=== PATIENT | female | born 1965 | race American Indian/Alaskan Native ===

== ENCOUNTER 2019-06-21 22:12 | Emergency (ER) | payer MEDICARE ==
[2019-06-21 23:15] LABS: Bacteria,Urine 1+ /HPF (Negative); Bilirubin,Urine NEG (Negative); Blood,Urine NEG (Negative); Color,Urine Yellow (Yellow); Mucus,Urine FEW /HPF; Urobilinogen,Urine < 2.0 mg/dL (<2.0)
[2019-06-21 23:21] LABS: Amphetamine Screen,Urine PRESUMPTIVE NEGATIVE; Benzodiazepines Screen,Urine PRESUMPTIVE NEGATIVE; Cannabinoid Screen,Urine PRESUMPTIVE NEGATIVE; Cocaine Screen,Urine PRESUMPTIVE NEGATIVE; Methadone Screen,Urine PRESUMPTIVE NEGATIVE; Opiate Screen,Urine PRESUMPTIVE NEGATIVE
[2019-06-21 23:35] LABS: Hematocrit 46.6 % (30.3-42.9); Hemoglobin 14.9 gm/dl (10.1-14.3); Mean Corpuscular HGB Conc 32 % (30-34); Mean Corpuscular Volume 83 fl (79-97); Platelet Count 210 K/mm3 (140-440); Red Blood Count 5.65 M/mm3 (3.65-5.03); Red Cell Distribution Width 14.1 % (13.2-15.2)
[2019-06-21 23:55] LABS: BUN/Creatinine Ratio 14; Blood Urea Nitrogen 13 mg/dL (7-17); Calcium 9.6 mg/dL (8.4-10.2); Hemolysis Index 10
[2019-06-22] MEDS ORDERED: TYLENOL PO ONE (02:30)
--- NOTE | 2019-06-22 02:41 | Emergency Department Report ---
ED Medical Clearance HPI - General Chief complaint: Medical Clearance Stated complaint: MEDICAL CLEARANCE Time Seen by Provider: 06/22/19 02:07 Source: patient Mode of arrival: Ambulatory - History of Present Illness Initial comments: Patient is a 54-year-old female presents emergency room for medical clearance. She states that she needs medical clearance to go to [facility] for depression. She states that she had elevated blood pressure at [facility] after they took her vitals one time. She denies any SI, HI, or hallucinations. She states that she has chronic abdominal discomfort due to hernia which she has had repaired. Denies any nausea, vomiting, diarrhea, fever, chills, any other symptoms. She states that she had a normal bowel movement today while in the emergency department. States she has a past medical history of diabetes, hypertension, depression and anxiety. States that she takes metoprolol and amlodipine for her blood pressure. States that she did not take her nighttime dose of metoprolol today. Home medications: Home Medications Medication Instructions Recorded Confirmed Last Taken Renal Soft Gel 1 cap PO DAILY 05/11/13 06/28/15 06/27/15 15:00 Insulin Glargine,Hum.rec.anlog 10 units SQ QHS 06/21/15 06/28/15 06/27/15 20:00 [Lantus Solostar] Insulin Regular, Human [HumuLIN R] 0 unit SQ TID PRN 06/21/15 06/28/15 06/27/15 15:00 Megestrol [Megace] 20 mg PO TID 06/21/15 06/28/15 06/27/15 15:00 Sodium Bicarbonate 650 mg PO TID 06/21/15 06/28/15 06/27/15 21:00 predniSONE [Deltasone] 10 mg PO QDAY 06/21/15 06/28/15 06/28/15 06:00 ALBUTEROL Inhaler (OR & NICU) 2 puff IH QID PRN 06/27/15 06/28/15 06/28/15 06:00 [ProAir HFA Inhaler] Metoprolol [Lopressor TAB] 25 mg PO QDAY 06/27/15 06/28/15 06/27/15 22:00 Aspirin [Adult Low Dose Aspirin EC] 81 mg PO DAILY 06/28/15 07/01/15 06/27/15 15:00 Previous Rx's Medication Instructions Recorded Last Taken Type Ondansetron [Zofran TAB] 4 mg PO Q8HR PRN #30 tablet 08/26/14 06/27/15 21:00 Rx Calcium Acetate [Phoslo] 667 mg PO TID #30 capsule 06/01/15 06/27/15 21:00 Rx Midodrine [Proamatine] 5 mg PO BID #60 tablet 06/01/15 06/27/15 21:00 Rx Sertraline [Zoloft] 100 mg PO QDAY #30 tablet 06/01/15 06/27/15 21:00 Rx Promethazine [Phenergan TAB] 25 mg PO Q6HR PRN #10 tab 06/28/15 Unknown Rx oxyCODONE /ACETAMINOPHEN [Percocet 1 - 2 tab PO Q6HR PRN #40 tablet 06/28/15 Unknown Rx 5/325] Bisacodyl [Dulcolax suppos] 10 mg SC QDAY PRN #30 supp.rect 07/01/15 Unknown Rx LORazepam [Ativan] 0.5 mg PO QDAY PRN #30 tablet 07/01/15 Unknown Rx Pregabalin 25 mg PO QDAY #30 capsule 07/01/15 Unknown Rx Allergies/Adverse reactions: Allergies Allergy/AdvReac Type Severity Reaction Status Date / Time Penicillins Allergy Swelling Verified 05/25/15 12:19 ED Review of Systems ROS: Stated complaint: MEDICAL CLEARANCE Other details as noted in HPI Comment: All other systems reviewed and negative ED Past Medical Hx - Past Medical History Previous Medical History?: Yes Hx Hypertension: Yes Hx Heart Attack/AMI: No Hx Congestive Heart Failure: Yes Hx Diabetes: Yes Hx Deep Vein Thrombosis: Yes Hx GERD: Yes Hx Renal Disease: No (did dialysis prior to kidney transplant HD: M-W-F) Hx Arthritis: Yes Hx Headaches / Migraines: Yes (MIGRAINES) Hx Seizures: Yes Hx Psychiatric Treatment: Yes (1 tx at 15 yo, place unknown) Hx Asthma: No Hx COPD: Yes (rare inhaler use) Hx HIV: No Additional medical history: hernia, anemia, Falls - Surgical History Past Surgical History?: Yes Hx Cholecystectomy: Yes ([facility] 07-18-10) Additional Surgical History: hernia repair x2 , sigmoidoscopy, kidney transplant, bilat hip replacements - Social History Smoking Status: Never Smoker - Medications Home Medications: Home Medications Medication Instructions Recorded Confirmed Last Taken Type Renal Soft Gel 1 cap PO DAILY 05/11/13 06/28/15 06/27/15 15:00 History Ondansetron [Zofran TAB] 4 mg PO Q8HR PRN #30 tablet 08/26/14 06/28/15 06/27/15 21:00 Rx Calcium Acetate [Phoslo] 667 mg PO TID #30 capsule 06/01/15 06/28/15 06/27/15 21:00 Rx Midodrine [Proamatine] 5 mg PO BID #60 tablet 06/01/15 06/28/15 06/27/15 21:00 Rx Sertraline [Zoloft] 100 mg PO QDAY #30 tablet 06/01/15 06/28/15 06/27/15 21:00 Rx Insulin Glargine,Hum.rec.anlog 10 units SQ QHS 06/21/15 06/28/15 06/27/15 20:00 History [Lantus Solostar] Insulin Regular, Human [HumuLIN R] 0 unit SQ TID PRN 06/21/15 06/28/15 06/27/15 15:00 History Megestrol [Megace] 20 mg PO TID 06/21/15 06/28/15 06/27/15 15:00 History Sodium Bicarbonate 650 mg PO TID 06/21/15 06/28/15 06/27/15 21:00 History predniSONE [Deltasone] 10 mg PO QDAY 06/21/15 06/28/15 06/28/15 06:00 History ALBUTEROL Inhaler (OR & NICU) 2 puff IH QID PRN 06/27/15 06/28/15 06/28/15 06:00 History [ProAir HFA Inhaler] Metoprolol [Lopressor TAB] 25 mg PO QDAY 06/27/15 06/28/15 06/27/15 22:00 History Aspirin [Adult Low Dose Aspirin EC] 81 mg PO DAILY 06/28/15 07/01/15 06/27/15 15:00 History Promethazine [Phenergan TAB] 25 mg PO Q6HR PRN #10 tab 06/28/15 Unknown Rx oxyCODONE /ACETAMINOPHEN [Percocet 1 - 2 tab PO Q6HR PRN #40 tablet 06/28/15 Unknown Rx 5/325] Bisacodyl [Dulcolax suppos] 10 mg SC QDAY PRN #30 supp.rect 07/01/15 Unknown Rx LORazepam [Ativan] 0.5 mg PO QDAY PRN #30 tablet 07/01/15 Unknown Rx Pregabalin 25 mg PO QDAY #30 capsule 07/01/15 Unknown Rx ED Physical Exam - General Limitations: No Limitations General appearance: alert, in no apparent distress - Head Head exam: Present: atraumatic, normocephalic - Eye Eye exam: Present: normal appearance, PERRL, EOMI - ENT ENT exam: Present: mucous membranes moist - Respiratory Respiratory exam: Present: normal lung sounds bilaterally. Absent: respiratory distress, wheezes, rales, rhonchi, stridor, chest wall tenderness, accessory muscle use, decreased breath sounds, prolonged expiratory - Cardiovascular Cardiovascular Exam: Present: regular rate, normal rhythm, normal heart sounds. Absent: systolic murmur, diastolic murmur, rubs, gallop - GI/Abdominal GI/Abdominal exam: Present: soft, normal bowel sounds, other (healed surgical incision to the midline of the abdomen, no hernia present). Absent: distended, tenderness, guarding, rebound, rigid - Neurological Exam Neurological exam: Present: alert, oriented X3 - Psychiatric Psychiatric exam: Present: normal affect, normal mood - Skin Skin exam: Present: warm, dry, intact ED Course Vital Signs 06/21/19 06/22/19 06/22/19 22:45 02:00 03:00 Temperature 97.8 F Pulse Rate 84 70 71 Respiratory 18 16 Rate Blood Pressure 129/94 Blood Pressure 138/83 112/67 [Left] O2 Sat by Pulse 99 Oximetry ED Medical Decision Making - Lab Data Result diagrams: 06/21/19 23:07 06/21/19 23:07 Lab Results 06/21/19 06/21/19 06/21/19 Range/Units 23:07 23:07 23:07 WBC (4.5-11.0) K/mm3 RBC (3.65-5.03) M/mm3 Hgb (10.1-14.3) gm/dl Hct (30.3-42.9) % MCV (79-97) fl MCH (28-32) pg MCHC (30-34) % RDW (13.2-15.2) % Plt Count (140-440) K/mm3 Sodium 140 (137-145) mmol/L Potassium 4.4 (3.6-5.0) mmol/L Chloride 102.4 (98-107) mmol/L Carbon Dioxide 24 (22-30) mmol/L Anion Gap 18 mmol/L BUN 13 (7-17) mg/dL Creatinine 0.9 (0.7-1.2) mg/dL Estimated GFR > 60 ml/min BUN/Creatinine Ratio 14 % Glucose 144 H (65-100) mg/dL Calcium 9.6 (8.4-10.2) mg/dL Total Creatine Kinase (30-135) units/L Urine Color (Yellow) Urine Turbidity (Clear) Urine pH (5.0-7.0) Ur Specific [place] (1.003-1.030) Urine Protein (Negative) mg/dL Urine Glucose (UA) (Negative) mg/dL Urine Ketones (Negative) mg/dL Urine Blood (Negative) Urine Nitrite (Negative) Urine Bilirubin (Negative) Urine Urobilinogen (<2.0) mg/dL Ur Leukocyte Esterase (Negative) Urine WBC (Auto) (0.0-6.0) /HPF Urine RBC (Auto) (0.0-6.0) /HPF U Epithel Cells (Auto) (0-13.0) /HPF Urine Bacteria (Auto) (Negative) /HPF Urine Mucus /HPF Salicylates < 0.3 L (2.8-20.0) mg/dL Urine Opiates Screen Urine Methadone Screen Acetaminophen < 5.0 L (10.0-30.0) ug/mL Ur Barbiturates Screen Ur Phencyclidine Scrn Ur Amphetamines Screen U Benzodiazepines Scrn Urine Cocaine Screen U Marijuana (THC) Screen Drugs of Abuse Note Plasma/Serum Alcohol (0-0.07) % 06/21/19 06/21/19 06/21/19 Range/Units 23:07 23:07 Unknown WBC 6.1 (4.5-11.0) K/mm3 RBC 5.65 H (3.65-5.03) M/mm3 Hgb 14.9 H (10.1-14.3) gm/dl Hct 46.6 H (30.3-42.9) % MCV 83 (79-97) fl MCH 27 L (28-32) pg MCHC 32 (30-34) % RDW 14.1 (13.2-15.2) % Plt Count 210 (140-440) K/mm3 Sodium (137-145) mmol/L Potassium (3.6-5.0) mmol/L Chloride (98-107) mmol/L Carbon Dioxide (22-30) mmol/L Anion Gap mmol/L BUN (7-17) mg/dL Creatinine (0.7-1.2) mg/dL Estimated GFR ml/min BUN/Creatinine Ratio % Glucose (65-100) mg/dL Calcium (8.4-10.2) mg/dL Total Creatine Kinase (30-135) units/L Urine Color Yellow (Yellow) Urine Turbidity Clear (Clear) Urine pH 5.0 (5.0-7.0) Ur Specific [place] 1.025 (1.003-1.030) Urine Protein 30 mg/dl (Negative) mg/dL Urine Glucose (UA) Neg (Negative) mg/dL Urine Ketones Tr (Negative) mg/dL Urine Blood Neg (Negative) Urine Nitrite Neg (Negative) Urine Bilirubin Neg (Negative) Urine Urobilinogen < 2.0 (<2.0) mg/dL Ur Leukocyte Esterase Tr (Negative) Urine WBC (Auto) 1.0 (0.0-6.0) /HPF Urine RBC (Auto) 4.0 (0.0-6.0) /HPF U Epithel Cells (Auto) < 1.0 (0-13.0) /HPF Urine Bacteria (Auto) 1+ (Negative) /HPF Urine Mucus Few /HPF Salicylates (2.8-20.0) mg/dL Urine Opiates Screen Urine Methadone Screen Acetaminophen (10.0-30.0) ug/mL Ur Barbiturates Screen Ur Phencyclidine Scrn Ur Amphetamines Screen U Benzodiazepines Scrn Urine Cocaine Screen U Marijuana (THC) Screen Drugs of Abuse Note Plasma/Serum Alcohol < 0.01 (0-0.07) % 06/21/19 06/22/19 Range/Units Unknown 02:08 WBC (4.5-11.0) K/mm3 RBC (3.65-5.03) M/mm3 Hgb (10.1-14.3) gm/dl Hct (30.3-42.9) % MCV (79-97) fl MCH (28-32) pg MCHC (30-34) % RDW (13.2-15.2) % Plt Count (140-440) K/mm3 Sodium (137-145) mmol/L Potassium (3.6-5.0) mmol/L Chloride (98-107) mmol/L Carbon Dioxide (22-30) mmol/L Anion Gap mmol/L BUN (7-17) mg/dL Creatinine (0.7-1.2) mg/dL Estimated GFR ml/min BUN/Creatinine Ratio % Glucose (65-100) mg/dL Calcium (8.4-10.2) mg/dL Total Creatine Kinase 53 (30-135) units/L Urine Color (Yellow) Urine Turbidity (Clear) Urine pH (5.0-7.0) Ur Specific [place] (1.003-1.030) Urine Protein (Negative) mg/dL Urine Glucose (UA) (Negative) mg/dL Urine Ketones (Negative) mg/dL Urine Blood (Negative) Urine Nitrite (Negative) Urine Bilirubin (Negative) Urine Urobilinogen (<2.0) mg/dL Ur Leukocyte Esterase (Negative) Urine WBC (Auto) (0.0-6.0) /HPF Urine RBC (Auto) (0.0-6.0) /HPF U Epithel Cells (Auto) (0-13.0) /HPF Urine Bacteria (Auto) (Negative) /HPF Urine Mucus /HPF Salicylates (2.8-20.0) mg/dL Urine Opiates Screen Presumptive negative Urine Methadone Screen Presumptive negative Acetaminophen (10.0-30.0) ug/mL Ur Barbiturates Screen Presumptive negative Ur Phencyclidine Scrn Presumptive negative Ur Amphetamines Screen Presumptive negative U Benzodiazepines Scrn Presumptive negative Urine Cocaine Screen Presumptive negative U Marijuana (THC) Screen Presumptive negative Drugs of Abuse Note Disclamer Plasma/Serum Alcohol (0-0.07) % - EKG Data EKG shows normal: sinus rhythm Rate: normal - EKG Data 06/22/19 03:16 LAD non specific T wave inversion in V1, V2, V3 compared to 05/25/15 no significant change - Medical Decision Making Patient is a 54-year-old female presents emergency room for medical clearance. She states that she needs medical clearance to go to [facility] for depression. She states that she had elevated blood pressure at [facility] after they took her vitals one time. She denies any SI, HI, or hallucinations. She states that she has chronic abdominal discomfort due to hernia which she has had repaired. Denies any nausea, vomiting, diarrhea, fever, chills, any other symptoms. She states that she had a normal bowel movement today while in the emergency department. States she has a past medical history of diabetes, hypertension, depression and anxiety. States that she takes metoprolol and amlodipine for her blood pressure. States that she did not take her nighttime dose of metoprolol today. Vitals are stable, BP is stable. no abd tenderness on exam, abd is soft, no distension, normal bowel sounds, healed surgical incision to the midline of the abdomen, no hernia present. pt has no obstructive symptoms. pt given tylenol for her chronic abd discomfort. labs are stable. UDS is negative. EKG with LAD, non specific T wave inversion in V1, V2, V3, compared to 05/25/15 no significant change. there is no emergent medical condition at this time preventing further treatment of her depression at [facility] facility. advised pt to please follow- up with a primary care doctor and ladle liner in the next 3-5 days. Return to the emergency room for any new or worsening symptoms. please take your me dications as your prescribed by your primary care physician. at this time there is no emergent medical condition preventing further treatment of your depression by [facility]. ED Disposition Clinical Impression: General medical exam Disposition: - TO HOME OR SELFCARE Is pt being admited?: No Does the pt Need Aspirin: No Condition: Stable Additional Instructions: Please follow-up with a primary care doctor and ladle liner in the next 3-5 days. Return to the emergency room for any new or worsening symptoms. please take your medications as your prescribed by your primary care physician. at this time there is no emergent medical condition preventing further treatment of your depression by [facility]. Referrals: [facility] [Provider Group] - 3-5 Days DAPHNE ELIZONDO MD [Staff Physician] - 3-5 Days Time of Disposition: 03:18 Print Language: PASHTO
--- NOTE | 2019-06-22 02:49 | Event Note ---
Date of service: 06/22/19 Face to Face: This is a 54-year-old female who was sent to the ER for medical clearance for incidental elevated blood pressure. The patient is seeking psychiatric assistance for depression. She is not homicidal or suicidal. She has chronic abdominal pain, for which she sees a pain specialist. She states that she would not have sought emergency medical attention today if she was not referred here by the psychiatric facility for evaluation of resolved asymptomatic elevated blood pressure. The patient is comfortable at this time, and she does not endorse any complaints other than depression and chronic abdominal pain. Abdomen is soft. She is not homicidal or suicidal. Laboratory studies unremar kable. She does not meet 1013 criteria. She does not appear to have an emergent medical condition at this time. Screening laboratory studies reviewed and appreciated. Screening EKG ordered. Assuming unremarkable EKG, the patient at this point time does not appear to have an immediate medical contraindication to psychiatric evaluation. She can follow-up with an outpatient primary care doctor for her incidental history of elevated blood pressure. Vital Signs 06/21/19 06/22/19 22:45 02:00 Temperature 97.8 F Pulse Rate 84 73 Respiratory 18 16 Rate Blood Pressure 129/94 Blood Pressure 152/88 [Left] O2 Sat by Pulse 99 Oximetry Lab Results 06/21/19 06/21/19 06/21/19 Range/Units 23:07 23:07 23:07 WBC (4.5-11.0) K/mm3 RBC (3.65-5.03) M/mm3 Hgb (10.1-14.3) gm/dl Hct (30.3-42.9) % MCV (79-97) fl MCH (28-32) pg MCHC (30-34) % RDW (13.2-15.2) % Plt Count (140-440) K/mm3 Sodium 140 (137-145) mmol/L Potassium 4.4 (3.6-5.0) mmol/L Chloride 102.4 (98-107) mmol/L Carbon Dioxide 24 (22-30) mmol/L Anion Gap 18 mmol/L BUN 13 (7-17) mg/dL Creatinine 0.9 (0.7-1.2) mg/dL Estimated GFR > 60 ml/min BUN/Creatinine Ratio 14 % Glucose 144 H (65-100) mg/dL Calcium 9.6 (8.4-10.2) mg/dL Total Creatine Kinase (30-135) units/L Urine Color (Yellow) Urine Turbidity (Clear) Urine pH (5.0-7.0) Ur Specific [place] (1.003-1.030) Urine Protein (Negative) mg/dL Urine Glucose (UA) (Negative) mg/dL Urine Ketones (Negative) mg/dL Urine Blood (Negative) Urine Nitrite (Negative) Urine Bilirubin (Negative) Urine Urobilinogen (<2.0) mg/dL Ur Leukocyte Esterase (Negative) Urine WBC (Auto) (0.0-6.0) /HPF Urine RBC (Auto) (0.0-6.0) /HPF U Epithel Cells (Auto) (0-13.0) /HPF Urine Bacteria (Auto) (Negative) /HPF Urine Mucus /HPF Salicylates < 0.3 L (2.8-20.0) mg/dL Urine Opiates Screen Urine Methadone Screen Acetaminophen < 5.0 L (10.0-30.0) ug/mL Ur Barbiturates Screen Ur Phencyclidine Scrn Ur Amphetamines Screen U Benzodiazepines Scrn Urine Cocaine Screen U Marijuana (THC) Screen Drugs of Abuse Note Plasma/Serum Alcohol (0-0.07) % 06/21/19 06/21/19 06/21/19 Range/Units 23:07 23:07 Unknown WBC 6.1 (4.5-11.0) K/mm3 RBC 5.65 H (3.65-5.03) M/mm3 Hgb 14.9 H (10.1-14.3) gm/dl Hct 46.6 H (30.3-42.9) % MCV 83 (79-97) fl MCH 27 L (28-32) pg MCHC 32 (30-34) % RDW 14.1 (13.2-15.2) % Plt Count 210 (140-440) K/mm3 Sodium (137-145) mmol/L Potassium (3.6-5.0) mmol/L Chloride (98-107) mmol/L Carbon Dioxide (22-30) mmol/L Anion Gap mmol/L BUN (7-17) mg/dL Creatinine (0.7-1.2) mg/dL Estimated GFR ml/min BUN/Creatinine Ratio % Glucose (65-100) mg/dL Calcium (8.4-10.2) mg/dL Total Creatine Kinase (30-135) units/L Urine Color Yellow (Yellow) Urine Turbidity Clear (Clear) Urine pH 5.0 (5.0-7.0) Ur Specific [place] 1.025 (1.003-1.030) Urine Protein 30 mg/dl (Negative) mg/dL Urine Glucose (UA) Neg (Negative) mg/dL Urine Ketones Tr (Negative) mg/dL Urine Blood Neg (Negative) Urine Nitrite Neg (Negative) Urine Bilirubin Neg (Negative) Urine Urobilinogen < 2.0 (<2.0) mg/dL Ur Leukocyte Esterase Tr (Negative) Urine WBC (Auto) 1.0 (0.0-6.0) /HPF Urine RBC (Auto) 4.0 (0.0-6.0) /HPF U Epithel Cells (Auto) < 1.0 (0-13.0) /HPF Urine Bacteria (Auto) 1+ (Negative) /HPF Urine Mucus Few /HPF Salicylates (2.8-20.0) mg/dL Urine Opiates Screen Urine Methadone Screen Acetaminophen (10.0-30.0) ug/mL Ur Barbiturates Screen Ur Phencyclidine Scrn Ur Amphetamines Screen U Benzodiazepines Scrn Urine Cocaine Screen U Marijuana (THC) Screen Drugs of Abuse Note Plasma/Serum Alcohol < 0.01 (0-0.07) % 06/21/19 06/22/19 Range/Units Unknown 02:08 WBC (4.5-11.0) K/mm3 RBC (3.65-5.03) M/mm3 Hgb (10.1-14.3) gm/dl Hct (30.3-42.9) % MCV (79-97) fl MCH (28-32) pg MCHC (30-34) % RDW (13.2-15.2) % Plt Count (140-440) K/mm3 Sodium (137-145) mmol/L Potassium (3.6-5.0) mmol/L Chloride (98-107) mmol/L Carbon Dioxide (22-30) mmol/L Anion Gap mmol/L BUN (7-17) mg/dL Creatinine (0.7-1.2) mg/dL Estimated GFR ml/min BUN/Creatinine Ratio % Glucose (65-100) mg/dL Calcium (8.4-10.2) mg/dL Total Creatine Kinase 53 (30-135) units/L Urine Color (Yellow) Urine Turbidity (Clear) Urine pH (5.0-7.0) Ur Specific [place] (1.003-1.030) Urine Protein (Negative) mg/dL Urine Glucose (UA) (Negative) mg/dL Urine Ketones (Negative) mg/dL Urine Blood (Negative) Urine Nitrite (Negative) Urine Bilirubin (Negative) Urine Urobilinogen (<2.0) mg/dL Ur Leukocyte Esterase (Negative) Urine WBC (Auto) (0.0-6.0) /HPF Urine RBC (Auto) (0.0-6.0) /HPF U Epithel Cells (Auto) (0-13.0) /HPF Urine Bacteria (Auto) (Negative) /HPF Urine Mucus /HPF Salicylates (2.8-20.0) mg/dL Urine Opiates Screen Presumptive negative Urine Methadone Screen Presumptive negative Acetaminophen (10.0-30.0) ug/mL Ur Barbiturates Screen Presumptive negative Ur Phencyclidine Scrn Presumptive negative Ur Amphetamines Screen Presumptive negative U Benzodiazepines Scrn Presumptive negative Urine Cocaine Screen Presumptive negative U Marijuana (THC) Screen Presumptive negative Drugs of Abuse Note Disclamer Plasma/Serum Alcohol (0-0.07) %
[2019-06-22 03:33] VITALS: BP 112/67
[2019-06-22 05:24] LABS: Basophils % (Manual) 0 % (0.0-1.8); Total Cells Counted 100
[2019-06-22 05:26] LABS: Anisocytosis 1+; Platelet Estimate Consistent w Auto
== END 2019-06-22 03:33 | disposition home or self-care (01) ==
LOC: ED 22:12
DX: I11.0 Hypertensive heart disease with heart failure (principal); I50.9 Heart failure, unspecified; E11.9 Type 2 diabetes mellitus without complications; F32.9 Major depressive disorder, single episode, unspecified; F41.9 Anxiety disorder, unspecified; K21.9 Gastro-esophageal reflux disease without esophagitis; J44.9 Chronic obstructive pulmonary disease, unspecified; G43.909 Migraine, unspecified, not intractable, without status migrainosus; Z79.4 Long term (current) use of insulin; Z79.899 Other long term (current) drug therapy; Z88.0 Allergy status to penicillin; Z90.49 Acquired absence of other specified parts of digestive tract; Z96.643 Presence of artificial hip joint, bilateral
CPT/HCPCS: 36415; 80048; 80307; 80320; 81001; 82550; 85007; 85025; 93005; 93010; 99283; G0480